=== PATIENT | female | born 2000 | race African-American/Black ===

== ENCOUNTER 2023-09-28 05:54 | Emergency (ER) | payer OTHER, SELFPAY ==
[2023-09-28] MEDS ORDERED: Ibuprofen 800 MG TAB ONE (06:50)
== END 2023-09-28 07:24 | disposition home or self-care (01) ==
LOC: MADERS 05:54
DX: S40.812A Abrasion of left upper arm, initial encounter (principal); V47.5XXA Car driver injured in collision with fixed or stationary object in traffic accident, initial encounter
CPT/HCPCS: 99283